=== PATIENT | male | born 1980 | race Two or more races ===

== ENCOUNTER 2016-12-07 14:27 | Emergency (ER) | payer OTHER ==
--- NOTE | 2016-12-07 14:55 | ER Document Report ---
ED Medical Screen (RME) - General Stated Complaint: FEVER Notes: Left lower extremity pain and fever for 3 days. I greeted and performed a rapid initial assessment of this patient. Comprehensive ED assessment and evaluation of the patient, analysis of test results and completion of the medical decision making process will be conducted by additional ED providers. - Related Data Allergies/Adverse Reactions: No Known Allergies Allergy (Unverified 12/07/16 14:53) Physical Exam - Vital signs Vitals: Temp Pulse Resp BP Pulse Ox 100.1 F 86 20 119/66 99 12/07/16 14:51 12/07/16 14:51 12/07/16 14:51 12/07/16 14:51 12/07/16 14:51 Course - Vital Signs Vital signs: Temp Pulse Resp BP Pulse Ox 100.1 F 86 20 119/66 99 12/07/16 14:51 12/07/16 14:51 12/07/16 14:51 12/07/16 14:51 12/07/16 14:51
[2016-12-07 15:26] LABS: ABSOLUTE LYMPHOCYTES (AUTO) 0.6 10^3/uL (0.5-4.7); ABSOLUTE MONOCYTES (AUTO) 0.8 10^3/uL (0.1-1.4); ABSOLUTE NEUT (AUTO) 4.9 10^3/uL (1.7-8.2); BASOPHILS % (AUTO) 0.2 % (0-2); EOSINOPHILS % (AUTO) 0.4 % (0-6); HEMATOCRIT 36.1 % (37.9-51.0); HEMOGLOBIN 12.2 g/dL (13.5-17.0); HGB HCT DIFFERENCE 0.5; LYMPHOCYTES % (AUTO) 8.9 % (13-45); MEAN CORPUSCULAR HEMOGLOBIN 32.3 pg (27.0-33.4); MEAN CORPUSCULAR HGB CONC 33.7 g/dL (32.0-36.0); MEAN CORPUSCULAR VOLUME 96 fl (80-97); MONOCYTES % (AUTO) 13.4 % (3-13); RED BLOOD COUNT 3.77 10^6/uL (4.35-5.55); RED CELL DISTRIBUTION WIDTH 13.5 % (11.5-14.0); SEGMENTED NEUTROPHILS % (AUTO) 77.1 % (42-78); WHITE BLOOD COUNT 6.3 10^3/uL (4.0-10.5)
[2016-12-07 15:33] LABS: APPEARANCE,URINE CLEAR; BILIRUBIN,URINE NEGATIVE (NEGATIVE); GLUCOSE, URINE NEGATIVE (NEGATIVE); KETONES,URINE NEGATIVE (NEGATIVE); LEUKOCYTE ESTERASE,URINE NEGATIVE (NEGATIVE); NITRITE,URINE NEGATIVE (NEGATIVE); PROTEIN,URINE 30 mg/dL (NEGATIVE); URINE SPECIFIC GRAVITY 1.031
[2016-12-07 15:45] LABS: ALANINE AMINOTRANSFERASE 233 U/L (21-72); ALBUMIN 3.9 g/dL (3.5-5.0); ALKALINE PHOSPHATASE 104 U/L (38-126); ANION GAP 11 (5-19); ASPARTATE AMINO TRANSFERASE 225 U/L (17-59); BILIRUBIN,TOTAL 1.3 mg/dL (0.2-1.3); BLOOD UREA NITROGEN 10 mg/dL (7-20); CALCIUM 9.3 mg/dL (8.4-10.2); CARBON DIOXIDE 28 mmol/L (22-30); CHLORIDE 98 mmol/L (98-107); CREATININE RESULT 0.67 mg/dL (0.52-1.25); GLUCOSE 132 mg/dL (75-110); POTASSIUM 4.2 mmol/L (3.6-5.0); SODIUM 136.7 mmol/L (137-145)
[2016-12-07 16:45] LABS: ADD ON TESTING BLD IN LAB ACKNOWLEDGE
--- NOTE | 2016-12-07 16:53 | ER Document Report ---
ED General - General Chief Complaint: Leg Pain Stated Complaint: FEVER Notes: Patient apparently is merging together several different things as his complaint from different sources. I can understand that he apparently was pulling some sort a cable about 3 days ago and it apparently broke and something hit this patient in his left thigh and he fell to the ground and hit his left elbow. This happened about 3 days ago. Patient is able to ambulate without difficulty. In addition, patient has had a fever and some congestion, but no vomiting or diarrhea or significant cough. TRAVEL OUTSIDE OF THE [place] IN LAST 30 DAYS: No - Related Data Allergies/Adverse Reactions: No Known Allergies Allergy (Unverified 12/07/16 14:53) Past Medical History - Social History Smoking Status: Unknown if Ever Smoked Cigarette use (# per day): No Frequency of alcohol use: Heavy Drug Abuse: None Family History: Reviewed & Not Pertinent Patient has suicidal ideation: No Patient has homicidal ideation: No Review of Systems - Review of Systems Notes: REVIEW OF SYSTEMS: Assisted in conversing with the patient by a female friend of his who is present in the patient's room. CONSTITUTIONAL : Has had a fever. EENT: Denies eye, ear, nose or mouth or throat pain or other symptoms. CARDIOVASCULAR: Denies chest pain. RESPIRATORY: Denies cough, chest congestion, or shortness of breath. GASTROINTESTINAL: Denies abdominal pain or nausea, vomiting, or diarrhea. GENITOURINARY: Denies difficulty or painful urinating, urinary frequency, blood in urine. MUSCULOSKELETAL: Denies back or neck pain. Denies joint pain or swelling. Points out that his left elbow hurts, but no swelling noted. Complains of pain in the left thigh, but it does not show any evidence of any injury to my examination. SKIN: Denies rash or skin lesions. NEUROLOGICAL: Denies LOC or altered mental status. Denies headache. Denies sensory loss or motor deficits. ALL OTHER SYSTEMS REVIEWED AND NEGATIVE. Physical Exam - Vital signs Vitals: Temp Pulse Resp BP Pulse Ox 100.1 F 86 20 119/66 99 12/07/16 14:51 12/07/16 14:51 12/07/16 14:51 12/07/16 14:51 12/07/16 14:51 Interpretation: Normal - Low-grade, Febrile - Notes Notes: PHYSICAL EXAMINATION: GENERAL: Well-appearing, in no acute distress. HEAD: Atraumatic, normocephalic. EYES: Pupils equal round and reactive to light, extraocular movements intact. No scleral icterus. ENT: oropharynx mild erythema, but otherwise without exudates. Moist mucous membranes. No apparent difficulty swallowing or with his voice. NECK: Normal range of motion, supple. LUNGS: Breath sounds clear and equal bilaterally. HEART: Regular rate and rhythm without murmurs. ABDOMEN: Soft, nontender. No guarding or rebound. BACK: No tenderness throughout entire back. EXTREMITIES: Normal range of motion without pain. No evidence of any injury to the left proximal leg and thigh. No swelling, ecchymosis, erythema, only tender to touch. No hematoma collection. NEUROLOGICAL: Normal speech, normal gait. Normal sensory, motor, and reflex exams. Awake, alert, and oriented x3. Cranial nerves normal. SKIN: Warm, dry, no rashes. Course - Re-evaluation Re-evalutation: 12/07/16 21:17 Labs are essentially unremarkable with a normal white cell count, except for some significant elevation of LFTs. I don't know if this is a primary problem related to the patient's febrile illness or if it secondary to alcohol consumption. The patient's friend who is here says he drinks very heavily. I stressed to the patient that it's important that he stopped drinking alcohol. His friend says that he went into what she describes and sounds like withdrawal when he tried to stop drinking previously. I'm going to do a hepatitis screening and check on that when it is done in the next week or so. He will probably need some further follow-up that I can hopefully arrange after that. - Vital Signs Vital signs: Temp Pulse Resp BP Pulse Ox 101 F H 89 16 126/68 H 89 L 12/07/16 17:50 12/07/16 17:50 12/07/16 17:50 12/07/16 17:50 12/07/16 17:50 - Laboratory Result Diagrams: 12/07/16 14:55 12/07/16 14:55 Laboratory results interpreted by me: 12/07/16 12/07/16 12/07/16 14:55 14:55 15:00 RBC 3.77 L Hgb 12.2 L Hct 36.1 L Lymphocytes % 8.9 L Monocytes % 13.4 H Sodium 136.7 L Glucose 132 H AST 225 H ALT 233 H Total Protein 9.0 H Urine Protein 30 H Urine Urobilinogen 4.0 H Urine Ascorbic Acid 40 H Discharge - Discharge Clinical Impression: Febrile illness, Elevated LFTs Left leg injury Qualifiers: Encounter type: initial encounter Qualified Code(s): S89.92XA - Unspecified injury of left lower leg, initial encounter Contusion of left leg Qualifiers: Encounter type: initial encounter Qualified Code(s): S80.12XA - Contusion of left lower leg, initial encounter Condition: Stable Disposition: HOME, SELF-CARE Additional Instructions: Contusion left leg and left elbow: Your injury has resulted in a contusion -- a crushing of the deep tissues. No injury to important structures was detected during the physician's exam. Contusions vary in the amount of pain they cause, and in the length of time required for healing. Typically, the area will become bruised, and will remain painful to touch for two or three weeks. However, most patients are back to working and playing within a few days. After the initial period of rest and cold-packs, your symptoms (together with the doctor's recommendations) will determine how rapidly you can get back to full activity. Usually this means "do what feels okay, but don't do things that hurt." If re-examination was recommended, it's important to follow up as instructed. Call the doctor or return any time if pain increases, if swelling becomes severe, if you develop numbness or weakness in an injured extremity, or if any other alarming symptoms occur. FEVER: Fever is the body's reaction to infection. Fever can also occur with illnesses that create fever-producing substances in the body. By itself, fever is not harmful. It helps the body fight invading germs. We are more concerned with: (1) What's causing the fever? (2) How can we keep you more comfortable until the fever goes away? Early in an illness, symptoms are often so vague that a diagnosis can't be made. If the doctor hasn't identified a clear cause for your fever, you will probably develop new symptoms within the next two days. Contact the doctor if you develop severe worsening headache, rash, chest pain, cough with yellow or green sputum, difficulty breathing, abdominal pain, or other new symptoms. There is no reason to treat a fever if you're comfortable. If the fever is causing aches, headache, and fatigue, you can treat it with ibuprofen (Advil , Nuprin, etc) or acetaminophen (Tylenol). Follow the directions on the bottle. Get plenty of liquids (three quarts per day). Rest. Physical work or sports will raise the temperature higher and make you feel much worse. Dress lightly. If you're chilling, this means the temperature is trying to go higher. Take ibuprofen or acetaminophen. When you feel sweaty and "feverish" the temperature is coming down. If the fever doesn't go away within two days or if you become more ill, call the doctor or return at once for re-examination. NORMAL EXAM AND WORKUP: At this time, with the exception of fever, and slightly elevated liver function tests, your examination and workup show no significant abnormality. No significant abnormal physical findings were noted. All laboratory, EKG, and imaging (x-ray, CT scans, ultrasound) studies that were ordered show no significant abnormality. Although your examination and all studies that were ordered showed no significant abnormal finding, there are no examinations and no studies that are 100% accurate. There is always the possibility that some abnormality could exist and not be detected with physical examination or within the limits and capabilities of laboratory and other studies. You should return or follow up as you were instructed on your visit today for further evaluation if your symptoms do not resolve. Liver Function Abnormality Your evaluation has shown an abnormality of your liver function. This may not be serious, but you need further testing. Abnormal liver function can be caused by alcohol, medicines, virus infections, heart failure, tumors, gallbladder problems, and many other diseases. But sometimes "abnormal" liver enzymes are "normal" -- it's just the way your liver works and there's nothing wrong. We need to be sure. If your doctor thinks the abnormal test was caused by alcohol, medicine, or a recent virus, we may just repeat the liver enzyme test later. Often, the test shows that the elevated enzymes are back to normal. Usually no treatment is necessary, except for avoiding the cause of the liver dysfunction (such as alcohol or a specific medicine). Further testing could include an ultrasound of the liver, liver scan, or perhaps a liver biopsy in difficult cases. Call the doctor if you become increasingly yellow, vomit repeatedly, begin to bruise or bleed easily, or have worsening abdominal pain. This liver function abnormality could be related to alcohol intake. You must stop drinking alcohol entirely. It could be due to an inflammation or infection in your liver. I am checking test and make sure you don't have hepatitis. Those results will be available in a couple of days. VIRAL SYNDROME: The physician has diagnosed a likely viral infection. Viruses not only cause "colds," but can cause many different symptoms including generalized aching, fever, headache, cough, diarrhea, nausea, vomiting, and fatigue. The treatment, for the most part, is simply relief of symptoms. This means that antibiotics are usually not given. Rest, fluids, pain medications and, occasionally, medication for the specific symptoms that are most bothersome will be prescribed. Use good handwashing to avoid passing the virus to others. Shared toys should be cleaned with disinfectant. Clean the toilets, sinks, and counter surfaces in bathrooms. Launder clothing in hot water. Contact the physician if you develop any new or unusual symptoms such as severe headache, stiff neck, high fever, chest pain, productive cough, or shortness of breath. You should be rechecked if you don't see marked improvement within seven to 10 days. Ibuprofen for pain Ibuprofen is an excellent, safe drug for pain control. In addition, it has potent antiinflammatory effects which are beneficial, especially in the treatment of injuries, arthritis, or tendonitis. It's best to take ibuprofen with food. Persons with ulcer disease or allergy to aspirin should notify their physician of this before taking ibuprofen. Take the medication exactly as prescribed. Don't take additional doses unless instructed to do so by your doctor. If you develop wheezing, shortness of breath, hives, faintness, stomach pain, vomiting, or dark black stools, return for re-evaluation at once. Benzodiazepines for shakes if you go through alcohol withdrawal. You have been given a benzodiazepine medication. Examples of this type of medicine include Valium, Xanax, Librium, Ativan, and Halcion. Benzodiazepines have many uses. Medications of this type are used for insomnia, anxiety, muscle spasms, seizures, and drug and alcohol withdrawal. You may become very drowsy when you first take the medication. You should not drive or operate machinery while under its effects. Do not combine the medication with alcohol, or with any other medication without talking to your doctor. Do not take if without specific instruction from your industrial methods consultant. Some benzodiazepines may have harmful interactions with oral antifungal medicines such as ketoconazole, itraconazole, and nefazodone. If you are taking an antifungal medicine, discuss this with your doctor before taking benzodiazepines. FOLLOW-UP CARE: If you have been referred to a physician for follow-up care, call the physician s office for an appointment as you were instructed or within the next two days. If you experience worsening or a significant change in your symptoms, notify the physician immediately or return to the Emergency Department at any time for re-evaluation. You must stop drinking all alcohol for the rest of your life. Continued drinking may kill you! Prescriptions: Lorazepam [Ativan 1 mg Tablet] 1 mg PO Q4HP PRN #20 tab PRN Reason: Forms: Return to Work Referrals: [facility]AL[facility],NO [Primary Care Provider] - Follow up as needed
[2016-12-07 17:00] LABS: ALCOHOL < 10 mg/dL (NONE DETECTED)
[2016-12-07] MEDS ORDERED: IBUPROFEN 600 MG TABLET PO ONE (17:41)
[2016-12-07 17:51] VITALS: BP 126/68
== END 2016-12-07 17:50 | disposition home or self-care (01) ==
LOC: ER 14:27
DX: S89.92XA Unspecified injury of left lower leg, initial encounter (principal); S80.12XA Contusion of left lower leg, initial encounter; R94.5 Abnormal results of liver function studies; R50.9 Fever, unspecified; W18.09XA Striking against other object with subsequent fall, initial encounter; Y99.0 Civilian activity done for income or pay
CPT/HCPCS: 36415; 80053; 80074; 80307; 81001; 85025; 99283

== ENCOUNTER 2016-12-15 11:27 | Emergency (ER) | payer SELFPAY ==
[2016-12-15] MEDS ORDERED: ACETAMINOPHEN 325 MG TABLET PO ONE (11:35)
--- NOTE | 2016-12-15 11:35 | ER Document Report ---
ED Medical Screen (RME) - General Chief Complaint: Vomiting Stated Complaint: VOMITING,FEVER,HEADACHE Mode of Arrival: Ambulatory Information source: Patient, Relative Notes: Patient presents with fever, headache and vomiting. Pt was evaluated for this problem on 12/07/2016 and symptoms have persisted. Family reports subjective fever. Patient has had a cough for over 2 weeks. hx: none I have greeted and performed a rapid initial assessment of this patient. A comprehensive ED assessment and evaluation of the patient, analysis of test results and completion of the medical decision making process will be conducted by additional ED providers. TRAVEL OUTSIDE OF THE [place] IN LAST 30 DAYS: No - Related Data Allergies/Adverse Reactions: No Known Allergies Allergy (Unverified 12/15/16 11:33) Past Medical History Renal/ Medical History: Denies: Hx Peritoneal Dialysis - Immunizations Hx Diphtheria, Pertussis, Tetanus Vaccination: No Physical Exam - Respiratory Respiratory status: No respiratory distress Breath sounds: Nonproductive cough, Wheezing - faint RUL
[2016-12-15 12:24] LABS: HEMATOCRIT 36.9 % (37.9-51.0); HEMOGLOBIN 12.4 g/dL (13.5-17.0); HGB HCT DIFFERENCE 0.3; MEAN CORPUSCULAR HEMOGLOBIN 31.8 pg (27.0-33.4); MEAN CORPUSCULAR HGB CONC 33.5 g/dL (32.0-36.0); MEAN CORPUSCULAR VOLUME 95 fl (80-97); RED BLOOD COUNT 3.89 10^6/uL (4.35-5.55); RED CELL DISTRIBUTION WIDTH 13.5 % (11.5-14.0)
[2016-12-15 12:33] LABS: ALANINE AMINOTRANSFERASE 125 U/L (21-72); ALBUMIN 3.9 g/dL (3.5-5.0); ALKALINE PHOSPHATASE 85 U/L (38-126); ANION GAP 11 (5-19); ASPARTATE AMINO TRANSFERASE 98 U/L (17-59); BILIRUBIN,TOTAL 0.9 mg/dL (0.2-1.3); BLOOD UREA NITROGEN 13 mg/dL (7-20); CALCIUM 9.3 mg/dL (8.4-10.2); CARBON DIOXIDE 28 mmol/L (22-30); CHLORIDE 100 mmol/L (98-107); CREATININE RESULT 0.57 mg/dL (0.52-1.25); GLUCOSE 109 mg/dL (75-110); POTASSIUM 4.1 mmol/L (3.6-5.0); SODIUM 138.6 mmol/L (137-145); TOTAL PROTEIN 8.7 g/dL (6.3-8.2)
[2016-12-15 13:09] LABS: BASOPHILS % (MANUAL) 0 % (0-2); EOSINOPHILS % (MANUAL) 0 % (0-6); LYMPHOCYTES % (MANUAL) 5 % (13-45); POLYCHROMASIA SLIGHT; TOTAL CELLS COUNTED 100; TOXIC GRANULATION SLIGHT
[2016-12-15 13:49] LABS: APPEARANCE,URINE CLEAR; BILIRUBIN,URINE NEGATIVE (NEGATIVE); GLUCOSE, URINE NEGATIVE (NEGATIVE); KETONES,URINE NEGATIVE (NEGATIVE); LEUKOCYTE ESTERASE,URINE NEGATIVE (NEGATIVE); NITRITE,URINE NEGATIVE (NEGATIVE); PROTEIN,URINE 30 mg/dL (NEGATIVE); URINE SPECIFIC GRAVITY 1.033
--- NOTE | 2016-12-15 14:00 | ER Document Report ---
ED GI/ - General Chief Complaint: Vomiting Stated Complaint: VOMITING,FEVER,HEADACHE Mode of Arrival: Ambulatory Notes: Patient is a 36 year old male who presents to the ED with sister who is translating for him for reevaluation c/o subjective fever, h/a, cough, vomiting , constipation. sister states that he quit drinking EtOH on 12/05/2016. He was previously consuming 18 beers every day for as long time he cannot specify how long he has been drinking but states its at least > 5 years. She states he had felt sick on 12/04 with a fever so he couldnt buy EtOh and came in on 12/07. Dr. Munoz evaluated him and instructed him to quit drinking etoh. The patient's last drink was 12/05. Since then he has had occasional confusion, tremors, fevers, abdominal cramping, constipation going every 3 days and occasional vomiting. PMH: denies SH: see above, denies tobacco or drug use PCP: none TRAVEL OUTSIDE OF THE [place] IN LAST 30 DAYS: No - Related Data Allergies/Adverse Reactions: No Known Allergies Allergy (Unverified 12/15/16 11:33) Past Medical History - General Information source: Patient, Relative - Social History Smoking Status: Never Smoker Chew tobacco use (# tins/day): No Frequency of alcohol use: Social Drug Abuse: None Family History: Reviewed & Not Pertinent Patient has suicidal ideation: No Patient has homicidal ideation: No Renal/ Medical History: Denies: Hx Peritoneal Dialysis - Immunizations Hx Diphtheria, Pertussis, Tetanus Vaccination: No Review of Systems - Review of Systems Constitutional: Chills, Diaphoresis, Fever, Weakness EENT: No symptoms reported Cardiovascular: denies: Chest pain Respiratory: Cough Gastrointestinal: Nausea, Vomiting, Constipation. denies: Blood in vomit, Black stools, Rectal bleeding Genitourinary: No symptoms reported Male Genitourinary: No symptoms reported Musculoskeletal: Other - shaking Skin: No symptoms reported Hematologic/Lymphatic: No symptoms reported Neurological/Psychological: No symptoms reported Physical Exam - Vital signs Vitals: Temp Pulse Resp BP Pulse Ox 99.3 F 76 18 110/61 99 12/15/16 11:32 12/15/16 11:32 12/15/16 11:32 12/15/16 11:32 12/15/16 11:32 - Notes Notes: PHYSICAL EXAM GENERAL: Alert, interacts well. HEAD: Normocephalic, atraumatic. LUNGS: Clear to auscultation bilaterally, no wheezes, rales, or rhonchi. No respiratory distress. HEART: Regular rate and rhythm. No murmurs, gallops, or rubs. ABDOMEN: Soft, nondistended, nontender. No guarding, rebound, or rigidity.. Bowel sounds present in all 4 quadrants. Rectal: sphintcer with normal tone, no evidence of stool within rectal vault, no BRBPR, no evidence of hemorrhoids EXTREMITIES: Moves all 4 extremities spontaneously. No edema, radial and dorsalis pedis pulses 2/4 bilaterally. No cyanosis. NEUROLOGICAL: Alert and oriented x3. Normal speech. PSYCH: Normal affect, normal mood. SKIN: Warm, dry, normal turgor. No rashes or lesions noted. Course - Re-evaluation Re-evalutation: 12/15/16 16:48 Patient is a 36-year-old male with past medical history significant for alcohol abuse recently quit on 12/05. Patients symptoms are consistent with alcohol withdrawal. Patient counseled on signs and symptoms to be aware to return to emergency department. Otherwise will be discharged home and can follow-up with listed resources on discharge instructions. Also give name to case management for follow-up. - Vital Signs Vital signs: Temp Pulse Resp BP Pulse Ox 98.1 F 70 16 101/56 L 98 12/15/16 13:48 12/15/16 13:48 12/15/16 13:48 12/15/16 13:48 12/15/16 13:48 - Laboratory Result Diagrams: 12/15/16 11:50 12/15/16 11:50 Laboratory results interpreted by me: 12/15/16 12/15/16 12/15/16 11:50 11:50 13:16 RBC 3.89 L Hgb 12.4 L Hct 36.9 L Seg Neuts % (Manual) 87 H Lymphocytes % (Manual) 5 L AST 98 H ALT 125 H Total Protein 8.7 H Urine Protein 30 H Urine Urobilinogen 4.0 H Urine Ascorbic Acid 40 H - Diagnostic Test Radiology reviewed: Image reviewed, Reports reviewed Discharge - Discharge Clinical Impression: Alcohol withdrawal Qualifiers: Complication of substance-induced condition: uncomplicated Qualified Code(s): F10.230 - Alcohol dependence with withdrawal, uncomplicated Constipation Qualifiers: Constipation type: unspecified constipation type Qualified Code(s): K59.00 - Constipation, unspecified Condition: Good Disposition: HOME, SELF-CARE Additional Instructions: Alcohol Withdrawal Your symptoms are caused by alcohol withdrawal. After a period of frequent drinking, the brain and body are changed by the alcohol. When you quit or reduce your drinking, the nervous system becomes unstable. Withdrawal symptoms can start a few hours after your last drink, but sometimes don't begin until a couple of days later. Symptoms can include shakiness, sweating, insomnia, nausea , vomiting, fearfulness, hallucinations, and seizures. In addition to the acute effects of alcohol withdrawal, we often have to deal with the medical effects of alcoholism. These problems often include dehydration, stomach irritation, intestinal bleeding, low blood sugar, liver disease, and pancreas inflammation. Treatment for alcohol withdrawal includes mild sedatives, vitamins, and fluids. You need to be with someone who can help if symptoms become severe. Many patients can withdraw at home. Admission to the hospital or a detox facility may be necessary if withdrawal symptoms are severe and uncontrollable. Abstaining from alcohol is the only effective long-term treatment. If you start drinking again, you will not be able to control yourself after the first drink. Treatment programs are available. In addition, many alcoholics benefit from Alcoholics Anonymous or other support groups available through your counselor or [employer]. [employer] and [employer] are support groups for friends and family members of an alcoholic. Go to the emergency room if you develop persistent vomiting, severe abdominal pain, fever, shortness of breath, hallucinations, uncontrollable tremors, or seizures. ABDOMINAL PAIN: There are many causes of abdominal pain. Pain can mean a serious problem requiring surgery (such as appendicitis). It can also be an innocent problem that goes away on its own (such as a viral infection). Often, time must pass to determine the cause of pain. The physician does not feel that hospitalization is necessary, at present. Things may change within the next 24 hours. Call the doctor or come back for re- examination if any problems occur, such as: (1) Pain that becomes more severe, steady, or becomes concentrated in one specific area. Also, pain that is more severe with movement or coughing. (2) Vomiting that persists or becomes more frequent. (3) Blood in the vomitus, urine, or bowel movements. Blood in the stool may have a tarry or black appearance. (4) Shaking chills or fever greater than 100 degrees F. (5) The abdomen becomes more distended or swollen. (6) Bowel movements cease. (7) Failure to improve as expected. NORMAL EXAM AND WORKUP: At this time, your examination and workup show no significant abnormality. No significant abnormal physical findings are noted. All laboratory, EKG, and imaging (x-ray, CT scans, ultrasound) studies that were ordered show no significant abnormality. Although your examination and all studies that were ordered showed no significant abnormal finding, there are no examinations and no studies that are 100% accurate. There is always the possibility that some abnormality could exist and not be detected with physical examination or within the limits and capabilities of laboratory and other studies. You should return or follow up as you were instructed on your visit today for further evaluation if your symptoms do not resolve. CONSTIPATION: Constipation is a common problem. It is especially likely as you get older. Constipation is a common cause of abdominal pain, but sometimes causes no symptoms at all. Causes of constipation include certain medications, dehydration, diets, inactivity, and low-fiber intake. Rarely, it can be a symptom of underlying disease. The physician has evaluated you for this. Avoid constipation by eating a diet high in fiber, fruits, and vegetables. Drink plenty of liquids. Get regular exercise. If possible, avoid constipating medicines like narcotic pain medication. Some vitamin tablets can cause constipation. Stool softeners may be needed for difficult cases. An excellent stool softener is Konsyl which is available at [employer], and [employer] drug store. Just add a teaspoon to a glass of pineapple or orange juice daily or twice a day if needed. Laxatives are useful for occasional constipation. You should use them only when necessary. Too-frequent use can make your bowels dependent on them. Some over the counter laxatives available without prescription are: Milk of Magnesia, 1-2 tablespoons twice a day Dulcolax, 5 mg pill or 10 mg suppository. Citrate of Magnesia, 4-5 ounces a day for a day or two For acute constipation, Fleet's Enemas and Dulcolax suppositories are helpful. Chronic, mcfp use of laxatives or enemas is not a good idea. Your bowel may become dependant on them. You do not need to have a bowel movement every day. Many people do fine with a bowel movement every three or four days. You should call your doctor or return for re-evaluation if you pass blood in the stool, or if you develop fever or increasing abdominal pain. BULK LAXATIVES: Bulk laxatives make the stool softer and bulkier. They're useful for preventing constipation. You can choose between psyllium, methylcellulose, and polycarbophil. They are available without a prescription. Psyllium brand names include Konsyl, Metamucil, Perdiem, Effer-Syllium and Hydrocil. It's available as powder, flavored drink powder, or chewable. The usual dose of psyllium powder is one heaping teaspoon in water each morning, increasing to twice a day if needed. Crane juice can disguise the slightly grainy texture. Methylcellulose is marketed as Citrucel and other brands. The average dose is two grams in a cup of water one to three times a day. Polycarbophil is marketed as Fiber-Con. Take two tablets with a cup of water one to three times a day. LAXATIVE: A laxative agent has been prescribed for your condition. This should result in passage of stool within 12 hours. Some mild intestinal cramping is common as the hard stool begins to move. You may have loose or runny stools for a short time. Contact your doctor if there is severe cramping, vomiting, or passage of blood. Return for further care if this medicine fails to improve your condition. FOLLOW-UP CARE: If you have been referred to a physician for follow-up care, call the physician s office for an appointment as you were instructed or within the next two days. If you experience worsening or a significant change in your symptoms, notify the physician immediately or return to the Emergency Department at any time for re-evaluation. Prescriptions: Docusate Sodium [Colace 100 mg Capsule] 100 mg PO DAILY #30 capsule Ondansetron [Zofran Odt 4 mg Tablet] 1 - 2 tab PO Q4H PRN #15 tab.rapdis PRN Reason: For Nausea/Vomiting Referrals: [facility] [NO LOCAL MD] - Follow up as needed
[2016-12-15] MEDS ORDERED: NORMAL SALINE 1000 ML 1,000 ML IV PRN (14:01)
[2016-12-15] MEDS ORDERED: MINERAL OIL ENEMA 133 ML PR ONE (14:14)
[2016-12-15] MEDS ORDERED: MINERAL OIL 30 ML UDCUP PR ONE (14:16)
[2016-12-15 17:37] VITALS: BP 113/60
== END 2016-12-15 17:37 | disposition home or self-care (01) ==
LOC: ER 11:27
DX: K59.00 Constipation, unspecified (principal); F10.230 Alcohol dependence with withdrawal, uncomplicated; R11.10 Vomiting, unspecified; R50.9 Fever, unspecified; R51 Headache; R05 Cough
CPT/HCPCS: 99285; 96360; 36415; 87040; 80307; 85025; 80053; 81001; 71020; 74000; J3490; J7030